=== PATIENT | male | born 1955 | race Caucasian/White ===

== ENCOUNTER → 2021-08-01 | Outpatient (CLI) | payer BC, OTHER ==
--- NOTE | 2021-08-01 12:17 | RAD ---
EXAM: AP, lateral and oblique views of the right knee DATE: 08/01/2021 8:08 AM INDICATION: Reason: PAIN, WORSENING LAST FEW MONTHS, NO INJURY / Spl. Instructions: / History: COMPARISON: No Prior FINDINGS: No acute fracture or dislocation. Moderate joint effusion. Moderate to severe medial joint space tariq rowing with tricompartmental osteophytes. Vascular calcifications are seen IMPRESSION: 1. No acute fracture or dislocation. 2. Moderate to severe right knee joint osteoarthritis. Electronically signed by: Thom Bassett MD (08/01/2021 12:15 PM) [id number]
== END ==
LOC: RAD 07:56
PROVIDERS: ATTEND Family Medicine
DX: M17.11 Unilateral primary osteoarthritis, right knee (principal); M25.461 Effusion, right knee; M25.761 Osteophyte, right knee; M25.861 Other specified joint disorders, right knee
CPT/HCPCS: 73562